=== PATIENT | male | born 1995 | race Caucasian/White ===

== ENCOUNTER 2017-04-14 14:09 | Emergency (ER) | payer BC, OTHER ==
[~2017-04-14] VITALS: Ht 190.5 cm; Wt 77.0 kg
[~2017-04-14 14:09] MED LIST: DICY10CA3; NONE PER PT; OXYC10TA32; OXYC5CAP4 PO; PRED10TA14 PO; TRAM50TA2 PO; VANC125C11
[2017-04-14 14:24] VITALS: BP 128/75
== END 2017-04-14 16:49 | disposition home or self-care (01) ==
LOC: ED 16:35
DX: S39.011A Strain of muscle, fascia and tendon of abdomen, initial encounter (principal); X58.XXXA Exposure to other specified factors, initial encounter; Y93.89 Activity, other specified; Y92.89 Other specified places as the place of occurrence of the external cause; Y99.8 Other external cause status
CPT/HCPCS: 76870; 81003; 99285

== ENCOUNTER 2017-11-16 20:20 | Emergency (ER) | payer BC ==
[~2017-11-16] VITALS: Ht 190.5 cm; Wt 85.0 kg
[~2017-11-16 20:20] MED LIST changes: -OXYC10TA32; +OXYC10TA47; +OXYC5CAP2 PO; -OXYC5CAP4 PO
[2017-11-16 20:22] VITALS: BP 149/72
== END 2017-11-16 21:37 | disposition left against medical advice (07) ==
LOC: ED 21:31
DX: F19.10 Other psychoactive substance abuse, uncomplicated (principal)
CPT/HCPCS: 99281

== ENCOUNTER 2020-12-24 18:16 | Emergency (ER) | payer BC ==
[~2020-12-24] VITALS: Ht 190.5 cm; Wt 91.0 kg
--- NOTE | 2020-12-24 18:27 | NUR ---
pt biba for suprapubic pain, n/v onset today, denies dysuria/penile discharge, denies diarrhea. 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 pt attached to bp and spo2 monitors, MD Reynoso at bedside. Mother at bedside.
[2020-12-24] MEDS ORDERED: HYDROmorphone 2 MG/ML, 1ML ONE (18:34)
[2020-12-24] MEDS: HYDROmorphone 2 MG/ML, 1ML IVPush PRN ×2 (18:36→20:05)
--- NOTE | 2020-12-24 18:36 | NUR ---
bp and spo2 monitors inplace, oxygen applied at 2L/min via nc with dilauidid admin. spo2 remains >95%. mother at bedside.
[2020-12-24 18:46] LABS: BASOPHILS % (AUTO) 1 % (0-1); EOSINOPHILS % (AUTO) 3 % (1-7); LYMPHOCYTES % (AUTO) 30 % (22-44); MEAN CORPUSCULAR HEMOGLOBIN 20.4 pg (27.5-34.5); MEAN CORPUSCULAR HGB CONC 31.5 g/dL (33.2-36.2); MEAN PLATELET VOLUME 10.7 fL (7.4-10.4); MONOCYTES % (AUTO) 9 % (2-9); NEUTROPHILS % (AUTO) 56 % (42-75); PLATELET COUNT 196 x10^3/uL (130-400); RED BLOOD COUNT 6.27 x10^6/uL (4.38-5.82); RED CELL DISTRIBUTION WIDTH 16.2 % (9.4-14.8)
[2020-12-24 18:49] LABS: MD MORPH REVIEW ONLY
[2020-12-24 18:56] LABS: ALANINE AMINOTRANSFERASE 45 U/L (12-78); ANION GAP 5 mmol/L (5-15); CALCIUM 8.7 mg/dL (8.5-10.1); CHLORIDE 110 mmol/L (98-107); CREATININE 1.01 mg/dL (0.7-1.3)
[2020-12-24 18:59] LABS: ALKALINE PHOSPHATASE 84 U/L (45-117); BILIRUBIN,TOTAL 0.5 mg/dL (0.2-1.0); TOTAL PROTEIN 7.3 g/dL (6.4-8.2)
--- NOTE | 2020-12-24 19:08 | NUR ---
Report received from LYNDA Kamara. This RN to assume care.
--- NOTE | 2020-12-24 19:17 | NUR ---
report to RN KISHA at bedside. pt a&o, resps even and unlabored. pt reports minimal pain relief s/p dilaudid.
[2020-12-24 19:31] LABS: MICROCYTOSIS 2+
[2020-12-24 19:32] LABS: HYPOCHROMIA 2+; OVALOCYTES 1+; TARGET CELLS 1+
[2020-12-24 19:33] LABS: <PLATELET ESTIMATE> ADEQUATE; LARGE PLATELETS 1+; TEAR DROPS 1+
[2020-12-24] MEDS ORDERED: OMNIPAQUE 350 MG/ML, 100ML BOTTLE ONE (19:42)
[2020-12-24] MEDS ORDERED: HYDROmorphone 1 MG/ML, 1ML INJ ONE (19:56)
[2020-12-24] MEDS ORDERED: OXYcodone/APAP 10/325MG TABLET PO ONE (21:30)
[2020-12-24 21:41] LABS: MICROSCOPIC NOT IND
[2020-12-24] MEDS ORDERED: KETOROLAC 30 MG/1 ML ONE (21:44)
[2020-12-24 21:48] VITALS: BP 117/70
[2020-12-24] MEDS ORDERED: KETOROLAC 30 MG/1 ML IVPush ONE (22:00)
--- NOTE | 2020-12-24 22:47 | NUR ---
Discharge instructions given. All questions and concerns addressed. Patient ambulatory with a steady gait. Belongings with patient.
== END 2020-12-24 22:49 | disposition home or self-care (01) ==
LOC: ED 18:46
DX: R10.9 Unspecified abdominal pain (principal); R11.2 Nausea with vomiting, unspecified
CPT/HCPCS: 36415; 74177; 80053; 81003; 83690; 85025; 96374; 96375; 99285; J1170; J1885; Q9967

== ENCOUNTER 2021-01-11 15:52 | Inpatient (IN) | payer BC ==
[~2021-01-11] VITALS: Ht 188 cm; Wt 85.0 kg
--- NOTE | 2021-01-11 16:06 | NUR ---
BREAK RN: PT DONALD. PER EMS PT HAS BEEN SOB SINCE MONDAY NIGHT BUT WORSENING TODAY. PT ARRIVES FROM EMS ON 9L O2 VIA NRB. PT O2 SAT AT 99%. PT CURRENTLY ON 5L NC O2 SAT AT 96%. EKG DONE. PT STATES NO HX OF ASTHMA. PT RESTING IN [facility], [facility] AT BEDSIDE, MONITORING IN PLACE, DR. PEGUERO AT BEDSIDE FOR EVALUATION, [facility].
[2021-01-11] MEDS ORDERED: ALBUTEROL SULFATE 2.5 MG/3 ML ONE ×2 (16:09→16:11)
[2021-01-11 16:21] LABS: BASOPHILS % (AUTO) 1 % (0-1); EOSINOPHILS % (AUTO) 7 % (1-7); LYMPHOCYTES % (AUTO) 13 % (22-44); MEAN CORPUSCULAR HEMOGLOBIN 20.5 pg (27.5-34.5); MEAN CORPUSCULAR HGB CONC 31.5 g/dL (33.2-36.2); MONOCYTES % (AUTO) 7 % (2-9); NEUTROPHILS % (AUTO) 73 % (42-75); PLATELET COUNT 174 x10^3/uL (130-400); RED CELL DISTRIBUTION WIDTH 16.4 % (9.4-14.8)
[2021-01-11 16:24] LABS: MD MORPH REVIEW ONLY
[2021-01-11] MEDS ORDERED: ALBUTEROL SULFATE 2.5 MG/3 ML NPPB ONE (16:30)
[2021-01-11 16:32] LABS: ANION GAP 4 mmol/L (5-15); CALCIUM 8.6 mg/dL (8.5-10.1); CHLORIDE 106 mmol/L (98-107)
[2021-01-11 16:35] LABS: ALANINE AMINOTRANSFERASE 30 U/L (12-78); ALKALINE PHOSPHATASE 80 U/L (45-117); BILIRUBIN,TOTAL 0.4 mg/dL (0.2-1.0); CREATININE 1.07 mg/dL (0.7-1.3); TOTAL PROTEIN 7.2 g/dL (6.4-8.2)
[2021-01-11 16:42] LABS: ANISOCYTOSIS 1+; HYPOCHROMIA 1+; MICROCYTOSIS 2+
[2021-01-11 16:43] LABS: OVALOCYTES 1+; TEAR DROPS 1+
[2021-01-11 16:44] LABS: TARGET CELLS 1+
[2021-01-11 16:45] LABS: <PLATELET ESTIMATE> ADEQUATE; LARGE PLATELETS 1+
--- NOTE | 2021-01-11 16:45 | NUR ---
NPPB TREATMENT COMPLETED. PT RPTS LESS SOB FEELING HOWEVER NO IMPROVEMENT NOTED WHEN LUNG SOUNDS AUSCULTATED. EXP WHEEZES T/O
[2021-01-11 16:56] LABS: % IRON SATURATION 32 % (20-55); IRON LEVEL 85 mcg/dL (65-175); TOTAL IRON BINDING CAPACITY 269 mcg/dL (250-450)
--- NOTE | 2021-01-11 17:02 | NUR ---
PT AMBULATED TO BATHROOM ON RA, RTD W/O INCIDENT. INCREASED SOB WITH ACTIVITY. RA PULSE OX 84%. 4L NC PLACED WITH EFFECT.
[2021-01-11] MEDS ORDERED: SODIUM CHLORIDE 0.9% 1,000ML IVBOLUS ONE (17:30)
[2021-01-11] MEDS ORDERED: DOXYCYCLINE 100 MG in DEXTROSE 5% 250 ML IV SCH ×2 (18:00→18:30)
[2021-01-11] MEDS ORDERED: methylPREDNISolone SOD SUCC 125 MG/2 ML ONE (18:23)
[2021-01-11] MEDS ORDERED: POLYETHYLENE GLYCOL 17 GM PACKET PO PRN (18:30)
[2021-01-11] MEDS ORDERED: GUAIFENESIN/DM 200-20MG, 10ML UDC PO PRN (18:30)
[2021-01-11] MEDS ORDERED: GUAIFENESIN/COD200MG-20MG/10ML LIQUID PO PRN (18:30)
[2021-01-11] MEDS ORDERED: ONDANSETRON ODT 4 MG PO PRN (18:30)
[2021-01-11] MEDS ORDERED: ACETAMINOPHEN 325 MG TABLET PO PRN (18:30)
[2021-01-11] MEDS ORDERED: BISACODYL 10 MG SUPP PR PRN (18:30)
[2021-01-11] MEDS ORDERED: methylPREDNISolone SOD SUCC 125 MG/2 ML IVPush ONE (18:30)
[2021-01-11] MEDS ORDERED: ALBUTEROL SULFATE 2.5 MG/3 ML NPPB PRN (19:30)
[2021-01-11 19:35] VITALS: BP 111/76
[2021-01-11] MEDS ORDERED: ALBUTEROL SULFATE 2.5 MG/3 ML NPPB SCH (20:00)
[2021-01-11] MEDS ORDERED: METHOCARBAMOL 750 MG TABLET PO PRN (20:30)
[2021-01-11] MEDS: HEPARIN 5,000 UNITS/ML, 1ML SQ SCH (21:01)
[2021-01-12 00:11] VITALS: BP 133/79
[2021-01-12] MEDS ORDERED: OXYcodone IR 5MG TABLET PO ONE ×2 (01:00→03:30)
[2021-01-12] MEDS: methylPREDNISolone SOD SUCC 125 MG/2 ML IVPush SCH ×2 (02:19→02:54)
[2021-01-12] MEDS ORDERED: MAALOX/HYOSCYAMINE/LIDOCAINE 45 ML BTL PO ONE (02:30)
[2021-01-12 05:37] LABS: BASOPHILS % (AUTO) 0 % (0-1); EOSINOPHILS % (AUTO) 0 % (1-7); LYMPHOCYTES % (AUTO) 9 % (22-44); MEAN CORPUSCULAR HEMOGLOBIN 20.4 pg (27.5-34.5); MEAN CORPUSCULAR HGB CONC 31.6 g/dL (33.2-36.2); MONOCYTES % (AUTO) 1 % (2-9); NEUTROPHILS % (AUTO) 90 % (42-75); PLATELET COUNT 172 x10^3/uL (130-400); RED BLOOD COUNT 5.93 x10^6/uL (4.38-5.82); RED CELL DISTRIBUTION WIDTH 15.6 % (9.4-14.8)
[2021-01-12 05:44] LABS: ANION GAP 7 mmol/L (5-15); CALCIUM 9.4 mg/dL (8.5-10.1); CHLORIDE 107 mmol/L (98-107)
[2021-01-12 05:46] LABS: CREATININE 0.83 mg/dL (0.7-1.3)
[2021-01-12] MEDS: HEPARIN 5,000 UNITS/ML, 1ML SQ SCH ×2 (05:55→06:03)
[2021-01-12] MEDS ORDERED: DOXYCYCLINE 100 MG in DEXTROSE 5% 250 ML IV SCH (06:00)
[2021-01-12 06:12] LABS: MD SCAN
[2021-01-12] MEDS ORDERED: SENNA/DOCUSATE TABLET PO SCH (09:00)
== END 2021-01-12 07:30 | disposition left against medical advice (07) | DRG 189 ==
LOC: ED 15:55 → EDIP 17:12 → 4EST 18:32
PROVIDERS: ADMIT Hospitalist; ATTEND Internal Medicine
DX: J96.01 Acute respiratory failure with hypoxia (principal); J20.8 Acute bronchitis due to other specified organisms; D50.9 Iron deficiency anemia, unspecified; F17.210 Nicotine dependence, cigarettes, uncomplicated; J45.909 Unspecified asthma, uncomplicated; Z20.822 Contact with and (suspected) exposure to COVID-19; Z82.5 Family history of asthma and other chronic lower respiratory diseases; Z53.29 Procedure and treatment not carried out because of patient's decision for other reasons
CPT/HCPCS: 36415; 84145; 99291; J7613; 71045; 80048; 80053; 82728; 83540; 83550; 83605; 85025; 87040; 93005; 94640; G0378; J1644; J7060; Q0162; J2930; J7030; J7512; U0003